=== PATIENT | female | born 1950 | race Caucasian/White ===

== ENCOUNTER → 2016-07-10 | Day surgery (SDC) | payer OTHER ==
[~2016-07-10] MED LIST: ALPRAZOLAM0.5 MG PO; AMITIZA PO; BENADRYL PO; CALCIUM 5001 TAB PO; CARDIZEM30 MG PO; CELEBREX PO; CITRACAL + D CA1 TA1 PO; CYMBALTA PO; DILTIAZEM HCL30 MG PO; DOCUSATE SODIU100 MG PO; DULOXETINE HCL60 MG PO; FIBER500 MG PO; GABAPENTIN300 M2 PO; HYDROCODON-ACE1 EAC5 PO; HYDROCODON-ACE1 EAC7 PO; LEVO-T112 MCG PO; LEVOTHYROXINE112 MCG PO; LORTAB; LORTAB 7.5-5001 TAB PO; MAGNESIUM250 M1 PO; MELATONIN5 M1 PO; MOBIC PO; MOVANTIK25 MG PO; NEURONTIN300 MG PO; PAXIL PO; PHENERGAN25 MG PO; PRILOSEC40 MG PO; PROTONIX PO; ROBAXIN 750750 M1 PO; ROBAXIN 750750 MG PO; STOOL SOFTENER1 EAC1 PO; SYNTHROID112 MCG PO; VITAMIN B-650 MG PO; VITAMIN B12-FO1 EACH PO; VITAMIN B650 MG PO; VITAMIN C PO; VITAMIN D3 COM1 EACH PO; ZESTRIL40 MG PO; [UNRECOGNIZED DRUG - OTHER] PO
--- NOTE | ~2016-07-10 | OR ---
Unit #: [id number] #: [id number] Patient: KEKE ARECHIGA [id number] [address] [place], [place] [address] [id number] O MR#: [id number] NAME: KEKE ARECHIGA ROOM: Date of Procedure: 07/10/2016 Admission Date: 07/10/2016 Surgeon: Elias Pedersen M.D. : 1950 Attending Physician: Elias Pedersen M.D. Primary Care Physician: Sandeep Shields M.D. OPERATIVE REPORT PREOPERATIVE DIAGNOSES 1. Back pain. 2. Postfusion. 3. Lumbar hardware dysfunction. POSTOPERATIVE DIAGNOSES 1. Back pain. 2. Postfusion. 3. Lumbar hardware dysfunction. PROCEDURE PERFORMED Diagnostic and therapeutic hardware injection x1 site with intravenous sedation and fluoroscopic guidance for localization. INDICATIONS FOR PROCEDURE The patient is a 66-year-old female, status post L4, L5, and S1 fusion. She has right-sided low back pain, which got significant after a fall. 15 months ago, injection at the S1 screw level at this junction with the hardware of the bone resulted in very good improvement for almost a year. Based on good response, we are going to proceed with a repeat injection today. DESCRIPTION OF PROCEDURE The patient was placed in a prone position. Standard monitors were applied. Sterile prep and drape of the lumbosacral area was performed. Fluoroscopy was then used to identify the site of the S1 screw on the right side. The skin overlying this was localized with 1% lidocaine. A 22-gauge Quincke point spinal needle was then advanced with fluoroscopic guidance to bring the needle tip to within junction of the screw, the stabilizing reinier, and bone. A dose of 80 mg Depo-Medrol and 4 mL of 0.25% bupivacaine were deposited. The patient tolerated the procedure otherwise well and was discharged to the recovery room in stable condition. Dictated by... Yasir Degroot/donald TD: 07/10/2016 23:55 JOB #: [id number] Unit #: [id number] #: [id number] Patient: KEKE ARECHIGA OPERATIVE REPORT Page 1 of 1 X Elias Pedersen MD X PROCEDURE OPERATIVE NOTE
== END | disposition home or self-care (01) ==
LOC: CCSC 08:18
DX: T85.698A Other mechanical complication of other specified internal prosthetic devices, implants and grafts, initial encounter (principal); M43.26 Fusion of spine, lumbar region; K21.9 Gastro-esophageal reflux disease without esophagitis; F41.9 Anxiety disorder, unspecified; F32.9 Major depressive disorder, single episode, unspecified; E03.9 Hypothyroidism, unspecified
CPT/HCPCS: J1040; J2250

== ENCOUNTER → 2016-07-30 | Outpatient (CLI) | payer MEDICARE, BC | END | disposition home or self-care (01) | LOC: CSSDAY 10:50 | DX: C56.9 Malignant neoplasm of unspecified ovary (principal); D64.9 Anemia, unspecified | CPT/HCPCS: 36430; 86850; 86900; 86901; 86923; P9016 ==

== ENCOUNTER → 2017-01-03 | Outpatient (CLI) | payer MEDICARE ==
--- NOTE | ~2017-01-03 | CT2 ---
[facility] A Service of [facility] RADIOLOGY TEXT RESULTS PATIENT: KEKE RIVERA LOCATION: [facility] : [birth year] UNIT #: [id number] AGE: [address]: Daren Medina MD SEX: F ORDER DR: [id number] [facility] [address]. [place], [place] [address] [id number] O MR#: [id number] Acc #: [id number] NAME: KEKE RIVERA : 1950 SEX: F STUDY DATE/TIME: 01/03/2017 14:42 UNIT: [facility] EDT ROOM: STUDY DESCRIPTION: CT Abd and Pelv W Cont Attending Physician: Daren Medina M.D. Referring Physician: Daren Medina M.D. Ordering Physician: Daren Medina M.D. Primary Care Physician: Sandeep Shields M.D. MEDICAL IMAGING REPORT This report is preliminary unless electronic signature is present EXAM CT abdomen and pelvis with contrast INDICATIONS Restaging ovarian cancer. Observation for metastatic disease. TECHNIQUE Contrast-enhanced CT of the abdomen and pelvis. This CT exam was performed with one or more of the following radiation dose reduction techniques: automatic exposure control, adjustment of mA and/or kV according to patient size, and iterative reconstruction. COMPARISON 05/23/2016. FINDINGS Refer to separately dictated chest CT for thoracic findings. ABDOMEN WITH CONTRAST: No liver or splenic lesion. The kidneys and adrenal glands are unremarkable. Pancreas atrophic, otherwise unremarkable. Previous cholecystectomy. Large hiatal hernia. Bowel loops are non-dilated. Large colonic stool burden. Midline supraumbilical ventral hernia measures 5.7 cm and contains uncomplicated small bowel loops. No suspicious abdominal mass or adenopathy. PELVIS WITH CONTRAST: Previous hysterectomy. There is no pelvic mass or adenopathy. No aggressive appearing bone lesion. IMPRESSION 1. No acute findings. 2. No abdominal or pelvic mass or adenopathy. [facility] A Service of [facility] RADIOLOGY TEXT RESULTS PATIENT: KEKE RIVERA LOCATION: [facility] : [birth year] UNIT #: [id number] AGE: [address]: Daren Medina MD SEX: F ORDER DR: 3. Other incidental findings are detailed above. Dictated by... Erick De Jesus M.D. THIS IS AN ELECTRONICALLY VERIFIED REPORT Erick De Jesus M.D. at 01/04/2017 12:10 PM EED/pcl TD: 01/04/2017 03:44 JOB #: [id number] MEDICAL IMAGING REPORT Page 1 of 1 COPY
--- NOTE | ~2017-01-03 | CT55 ---
[facility] A Service of [facility] RADIOLOGY TEXT RESULTS PATIENT: KEKE RIVERA LOCATION: [facility] : 50 UNIT #: [id number] AGE: [address]: Daren Medina MD SEX: F ORDER DR: [id number] [facility] [address] [place], [place] [address] [id number] O MR#: [id number] Acc #: [id number] NAME: KEKE RIVERA : 1950 SEX: F STUDY DATE/TIME: 01/03/2017 14:42 UNIT: [facility] ROOM: STUDY DESCRIPTION: CT Chest W Con Attending Physician: Daren Medina M.D. Referring Physician: Daren Median M.D. Ordering Physician: Daren Medina M.D. Primary Care Physician: Sandeep Shields M.D. MEDICAL IMAGING REPORT This report is preliminary unless electronic signature is present EXAM CT chest with contrast INDICATIONS Restaging ovarian cancer. Observation for metastatic disease. PROCEDURE Contrast-enhanced CT of the chest. This CT exam was performed with one or more of the following radiation dose reduction techniques: automatic exposure control, adjustment of mA and/or kV according to patient size, and iterative reconstruction. COMPARISON 05/11/2016 FINDINGS No suspicious pulmonary nodule. No pleural fluid or pneumothorax. No pathologically enlarged hilar or mediastinal lymph nodes. Moderately large hiatal hernia. No aggressive-appearing bone lesion. IMPRESSION 1. No acute findings in the chest. 2. No definitive evidence for metastatic disease in the chest. 3. Moderately large hiatal hernia. Dictated by... Erick De Jesus M.D. THIS IS AN ELECTRONICALLY VERIFIED REPORT Erick De Jesus M.D. at 01/04/2017 12:10 PM [facility] A Service of [facility] RADIOLOGY TEXT RESULTS PATIENT: KEKE RIVERA LOCATION: [facility] : 50 UNIT #: [id number] AGE: [address]: Daren Medina MD SEX: F ORDER DR: LINETTE/chivo TD: 01/04/2017 04:00 JOB #: [id number] MEDICAL IMAGING REPORT Page 1 of 1 COPY
[2017-01-03 14:06] LABS: POC - CREATININE 1.18 mg/dL (0.44-1.03)
== END | disposition home or self-care (01) ==
LOC: CCAT 12:18
PROVIDERS: Internal Medicine Hematology & Oncology
DX: C57.02 Malignant neoplasm of left fallopian tube (principal); N30.00 Acute cystitis without hematuria; D68.61 Antiphospholipid syndrome; R18.0 Malignant ascites; K44.9 Diaphragmatic hernia without obstruction or gangrene
CPT/HCPCS: 71260; 74177; 82565; 96360; 96361; Q9967